=== PATIENT | female | born 1995 | race Caucasian/White ===

== ENCOUNTER 2018-12-13 18:06 | Emergency (ER) | payer BC, OTHER ==
[2018-12-13 18:20] VITALS: BP 117/75; O2SAT 98
--- NOTE | 2018-12-13 18:38 | ERPHSYRPT ---
- History of Present Illness Time Seen by Provider: 12/13/18 18:32 Source: patient Exam Limitations: no limitations Patient Subjective Stated Complaint: Fell in a mole hole on and thinks she twisted her right knee, pain, swelling Triage Nursing Assessment: Pt c/o of right knee pain, knee is swollen and tender to touch, vitals wnl, pulses normal, rates pain 6/10 Physician History: This is a 23-year-old white female previously healthy arrives with complaint of pain in her right knee for 5 days. According to the patient she stepped in a mole hole 5 days ago she fell she twisted her right knee. She is having pain in her right knee worse with walking. Denies other complaints. Past medical history : Sinus problems. Past surgical history tonsils Social history denies tobacco alcohol or illicit drug use Method of Injury: fell, twisted Occurred: days ago (5 days ago) Quality: aching Severity of Pain-Max: moderate Severity of Pain-Current: moderate Lower Extremities Pain: knee: right Modifying Factors: Improves With: movement, other (walking) Associated Symptoms: No unable to bear weight, No dizzy, No fainted, No seizure , No snapping sensation, No popping sensation Allergies/Adverse Reactions: No Known Drug Allergies Allergy (Verified 12/13/18 18:20) Home Medications: Cetirizine HCl [Zyrtec] 10 mg PO DAILY 12/13/18 [History] Fluticasone Propionate [Flonase NASAL] 1 gm NS UD 12/13/18 [History] Montelukast Sodium 10 mg [Singulair 10 MG] 10 mg PO DAILY 12/13/18 [History] Omeprazole 40 mg PO DAILY 12/13/18 [History] - Review of Systems Constitutional: No Fever, No Chills Eyes: No Symptoms Ears, Nose, & Throat: No Symptoms Respiratory: No Cough, No Dyspnea Cardiac: No Symptoms Abdominal/Gastrointestinal: No Abdominal Pain, No Nausea, No Vomiting, No Diarrhea Genitourinary Symptoms: No Dysuria Musculoskeletal: Other (right knee pain and swelling) Skin: No Rash Neurological: No Dizziness, No Focal Weakness, No Sensory Changes Psychological: No Symptoms Endocrine: No Symptoms All Other Systems: Reviewed and Negative - Past Medical History Pertinent Past Medical History: No Other Medical History: sinus issues - Past Surgical History Past Surgical History: Yes - Social History Smoking Status: Never smoker Exposure to second hand smoke: No Drug Use: none Patient Lives Alone: No - Female History Hx Last Menstrual Period: 11/25/2018 Hx Now: No - Nursing Vital Signs Nursing Vital Signs: Initial Vital Signs Temperature 97.9 F 12/13/18 18:10 Pulse Rate 82 12/13/18 18:10 Blood Pressure 117/75 12/13/18 18:10 O2 Sat by Pulse Oximetry 98 12/13/18 18:10 Pain Scale Pain Intensity 6 - Physical Exam General Appearance: mild distress, alert Eyes, Ears, Nose, Throat Exam: moist mucous membranes Neck Exam: non-tender, supple Cardiovascular/Respiratory Exam: chest non-tender, normal breath sounds, regular rate/rhythm, no respiratory distress Gastrointestinal/Abdominal Exam: non-tender, guarding Back Exam: normal inspection, No vertebral tenderness Hips Exam: bilateral: non-tender, normal inspection, normal range of motion, no evidence of injury Legs Exam: bilateral leg: non-tender, normal inspection, normal range of motion , no evidence of injury Knees Exam: right knee: bone tenderness (right knee tender anteriorly with palpation), other (mild edema right anterior knee, right knee stable to anterior drawer posterior drawer MCL stress LCL stress), left knee: non-tender ( she), normal inspection, bilateral knee: normal range of motion Ankle Exam: bilateral ankle: non-tender, normal inspection, normal range of motion, no evidence of injury Foot Exam: bilateral foot: non-tender, normal inspection, normal range of motion , no evidence of injury DTR - Lower Extremities Exam: ankle (R): 2+, ankle (L): 2+ Neuro/Tendon Exam: normal sensation, normal motor functions Mental Status Exam: alert (for), oriented x 3, cooperative Skin Exam: normal color, warm, dry SpO2 Interpretation: normal (98%) SpO2: 98 - Course Nursing assessment & vital signs reviewed: Yes - Radiology Exams Right Knee X-ray Interpretation: Interpreted by me ([facility] stable: negative fracture, negative subluxation) Ordered Tests: Active Orders 24 hr Category Date Time Status KNEE (3 VIEWS) Stat Exams 12/13/18 18:30 Ordered - Progress Progress: improved Progress Note: 12/13/18 18:45 Patient denies chance of 12/13/18 18:54 X-ray right knee negative fracture negative subluxation. Will have the nurses placed a right knee immobilizer. Will place patient on Naprosyn. - Departure Departure Disposition: Home Clinical Impression: Strain of right knee Qualifiers: Encounter type: initial encounter Qualified Code(s): S86.911A - Strain of unspecified muscle(s) and tendon(s) at lower leg level, right leg, initial encounter Right knee pain Qualifiers: Chronicity: acute Qualified Code(s): M25.561 - Pain in right knee Condition: Fair Critical Care Time: No Referrals: ANNETTE PRECIADO [Primary Care Provider] - Instructions: Knee Sprain (DC), Knee Pain (DC) Additional Instructions: Return home. Ice and elevate right knee 24-48 hours. Naprosyn as prescribed. Followup with your family symptoms are worse, no better in 48-72 hours or persist longer than one week. Return for acute distress or for severe symptoms.
[2018-12-13 19:16] VITALS: PULSE 89
--- NOTE | 2018-12-14 08:40 | XRAY ---
Indication: Pain following fall 5 days ago. Comparison: None 3 views of the right knee obtained. No bony, articular, or soft tissue abnormalities.
== END 2018-12-13 19:17 | disposition home or self-care (01) ==
LOC: ED 18:06
DX: S86.911A Strain of unspecified muscle(s) and tendon(s) at lower leg level, right leg, initial encounter (principal); X50.1XXA Overexertion from prolonged static or awkward postures, initial encounter; Y93.01 Activity, walking, marching and hiking; M25.561 Pain in right knee
CPT/HCPCS: 73562; 99284; L1830

== ENCOUNTER 2019-02-12 11:33 | Emergency (ER) | payer BC, OTHER ==
[2019-02-12 11:43] VITALS: BP 125/72; PULSE 84
[2019-02-12 11:51] VITALS: O2SAT 96
[2019-02-12] MEDS ORDERED: BENADRYL 50 MG/ML IM ONE (11:55)
[2019-02-12] MEDS ORDERED: BENADRYL 50 MG/ML ONE (11:58)
--- NOTE | 2019-02-12 11:59 | ERPHSYRPT ---
- History of Present Illness Time Seen by Provider: 02/12/19 11:56 Source: patient Exam Limitations: no limitations Patient Subjective Stated Complaint: was taking zyrtec and stoopoed taking it to get allergy testing and has niow broke out in rash Triage Nursing Assessment: pt alert nad orietnedx3, ambualtes by self, gait is steady, lung sounds clear, no swelling of throat, pupils perrla2, skin warm dry and itnact, patient has pin point rash all over her body arms legs torso and back, states she was in grass yesterday and is not taking zyrtec right now because shes having allergy testing done wednesday Physician History: was taking zyrtec and stoopoed taking it to get allergy testing and has now broke out in rash Timing/Duration: today Severity: moderate Associated Symptoms: rash Allergies/Adverse Reactions: No Known Drug Allergies Allergy (Verified 12/13/18 18:20) Home Medications: Cetirizine HCl [Zyrtec] 10 mg PO DAILY 12/13/18 [History] Fluticasone Propionate [Flonase NASAL] 1 gm NS UD 12/13/18 [History] Montelukast Sodium 10 mg [Singulair 10 MG] 10 mg PO DAILY 12/13/18 [History] Omeprazole 40 mg PO DAILY 12/13/18 [History] Hx Tetanus, Diphtheria Vaccination/Date Given: Yes Hx Influenza Vaccination/Date Given: No Hx Pneumococcal Vaccination/Date Given: No Immunizations Up to Date: Yes - Review of Systems Constitutional: No Symptoms Eyes: No Symptoms Ears, Nose, & Throat: No Symptoms Respiratory: No Symptoms Cardiac: No Symptoms Musculoskeletal: No Symptoms Skin: Rash Neurological: No Symptoms Psychological: No Symptoms - Past Medical History Pertinent Past Medical History: No Other Medical History: sinus issues - Past Surgical History Past Surgical History: No - Social History Smoking Status: Never smoker Exposure to second hand smoke: No Drug Use: none Patient Lives Alone: No - Female History Hx Now: No - Nursing Vital Signs Nursing Vital Signs: Initial Vital Signs Temperature 98.2 F 02/12/19 11:33 Pulse Rate 84 02/12/19 11:33 Respiratory Rate 16 02/12/19 11:33 Blood Pressure 125/72 02/12/19 11:33 O2 Sat by Pulse Oximetry 98 02/12/19 11:33 - Physical Exam General Appearance: no apparent distress, alert Eye Exam: PERRL/EOMI, eyes nml inspection Ears, Nose, Throat Exam: normal ENT inspection, TMs normal, pharynx normal, moist mucous membranes Neck Exam: normal inspection, non-tender, supple, full range of motion Respiratory Exam: normal breath sounds, lungs clear, No respiratory distress Cardiovascular Exam: regular rate/rhythm, normal heart sounds, normal peripheral pulses Gastrointestinal/Abdomen Exam: soft, normal bowel sounds, No tenderness, No mass Back Exam: normal inspection, normal range of motion, No CVA tenderness, No vertebral tenderness Extremity Exam: normal inspection, normal range of motion, pelvis stable Neurologic Exam: alert, oriented x 3, cooperative, normal mood/affect, nml cerebellar function, nml station & gait, sensation nml, No motor deficits Skin Exam: normal color, warm, dry, rash Lymphatic Exam: No adenopathy SpO2: 96 - Course Nursing assessment & vital signs reviewed: Yes Ordered Tests: Medication Summary Generic Name Dose Route Start Last Admin Trade Name Elfego PRN Reason Stop Dose Admin Diphenhydramine HCl 25 mg 02/12/19 11:55 Benadryl 50 Mg/Ml IM 02/12/19 11:56 STAT ONE - Progress Progress: unchanged Counseled pt/family regarding: diagnosis, need for follow-up - Departure Departure Disposition: Home Clinical Impression: Rash due to allergy Condition: Stable Critical Care Time: No Referrals: ANNETTE PRECIADO [Primary Care Provider] - Instructions: Skin Rash (DC) Additional Instructions: RASH 1. Depending on the reason for the rash, the instructions will differ. 2. If an antibiotic has been prescribed, take it as directed until gone. 3. If anti-fungals or shampoos are prescribed, use only as directed and follow specific instructions on package container. 4. Avoid hot showers/baths, as this may increase itching. 5. Calamine lotion or Aveeno Oatmeal baths may help itching. 6. See your family physician if these signs or symptoms persist for more than four days. Discharge/Care Plan ODALYS GALLAGHER JERSEY was seen on 02/12/19 in the Emergency Room. The patient was counseled regarding Diagnosis,Lab results, Imaging studies, need for follow up and when to return to the Emergency Room. Prescriptions given: Discharge Note I have spoken with the patient and/or caregivers. I have explained the patient' s condition, diagnosis and treatment plan based on the information available to me at this time. I have answered the patient's and/or caregiver's questions and addressed any concerns. The patient and/or caregivers have as good understanding of the patient's diagnosis, condition and treatment plan as can be expected at this point. The vital signs have been stable. The patient's condition is stable and appropriate for discharge from the emergency department. The patient will pursue further outpatient evaluation with the primary care physician or other designated or consulting physician as outlined in the discharge instructions. The patient and/or caregivers are agreeable to this plan of care and follow-up instructions have been explained in detail. The patient and/or caregivers have received these instruction. The patient/and or caregivers are aware that any significant change in condition or worsening of symptoms should prompt an immediate return to this or the closest emergency department or call 911.
== END 2019-02-12 12:11 | disposition home or self-care (01) ==
LOC: ED 11:33
DX: T78.40XA Allergy, unspecified, initial encounter (principal); R21 Rash and other nonspecific skin eruption
CPT/HCPCS: 87651; 96372; 99283; 99284; J1200; J2930

== ENCOUNTER 2019-02-12 20:43 | Emergency (ER) | payer BC, OTHER ==
--- NOTE | 2019-02-12 21:15 | ERPHSYRPT ---
- History of Present Illness Time Seen by Provider: 02/12/19 21:03 Source: patient Exam Limitations: no limitations Patient Subjective Stated Complaint: Pt states last night around midnight she started breaking out in a rash. came in to the ER today and was given a Benadryl shot. After going home the rash started getting worse and itching so bad she had to come back in Triage Nursing Assessment: Pt ambulated to dept with steady gait. Alert and oriented x3. Respirations easy and non-labored. Pt has large patches of hives on her right shoulder and down her back, also a large spot under her left arm. Multiple other spots all over the upper half of her body Physician History: 23-year-old white female arrives with complaint of a rash since this morning she states she had stopped Zyrtec for allergy testing. She developed a rash she came into the ER was given a shot of Benadryl she feels like her rashes were she does state she went ahead and took a Zyrtec anyway she states that she is having worsening of the rash she has some correlated rash on her back in erythematous rash on her abdomen she is not short of breath she has no sore throat she has no fevers she denies new contacts. She was given a shot of Benadryl here in the emergency room states she was going to use topical Benadryl. Past medical history includes sinus problems. She states she is going to be worked up for allergies. Past surgical history is negative. Patient states she has had a period about a month ago she denies any chance of . Timing/Duration: today Severity: moderate Modifying Factors: Improves With: other (stopped Zyrtec) Associated Symptoms: rash (diffuse rash), No nausea, No vomiting, No abdominal pain, No shortness of breath, No heartburn, No diaphoresis, No cough, No chills , No chest pain, No fever, No headaches, No loss of appetite, No malaise Allergies/Adverse Reactions: No Known Drug Allergies Allergy (Verified 12/13/18 18:20) Home Medications: Cetirizine HCl [Zyrtec] 10 mg PO DAILY 12/13/18 [History] Fluticasone Propionate [Flonase NASAL] 1 gm NS UD 12/13/18 [History] Omeprazole 40 mg PO DAILY 12/13/18 [History] Hx Tetanus, Diphtheria Vaccination/Date Given: Yes Hx Influenza Vaccination/Date Given: No Hx Pneumococcal Vaccination/Date Given: No - Review of Systems Constitutional: No Fever, No Chills Eyes: No Symptoms Ears, Nose, & Throat: No Symptoms Respiratory: No Cough, No Dyspnea Cardiac: No Chest Pain, No Edema, No Syncope Abdominal/Gastrointestinal: No Abdominal Pain, No Nausea, No Vomiting, No Diarrhea Genitourinary Symptoms: No Dysuria Musculoskeletal: No Back Pain, No Neck Pain Skin: Rash (diffuse rash) Neurological: No Dizziness, No Focal Weakness, No Sensory Changes Psychological: No Symptoms Endocrine: No Symptoms All Other Systems: Reviewed and Negative - Past Medical History Pertinent Past Medical History: No Other Medical History: sinus issues and allergies - Past Surgical History Past Surgical History: Yes - Social History Smoking Status: Never smoker Exposure to second hand smoke: No Drug Use: none Patient Lives Alone: No - Female History Hx Last Menstrual Period: December 2018 Hx Now: No - Nursing Vital Signs Nursing Vital Signs: Initial Vital Signs Temperature 98.1 F 02/12/19 20:50 Pulse Rate 89 02/12/19 20:50 Respiratory Rate 18 02/12/19 20:50 Blood Pressure 122/88 02/12/19 20:50 O2 Sat by Pulse Oximetry 98 02/12/19 20:50 Pain Scale Pain Intensity 0 - Physical Exam General Appearance: no apparent distress, alert Eye Exam: PERRL/EOMI, eyes nml inspection Ears, Nose, Throat Exam: normal ENT inspection, TMs normal, pharynx normal, moist mucous membranes Neck Exam: normal inspection, non-tender, supple, full range of motion Respiratory Exam: normal breath sounds, lungs clear, No respiratory distress Cardiovascular Exam: regular rate/rhythm, normal heart sounds, normal peripheral pulses Gastrointestinal/Abdomen Exam: soft, normal bowel sounds, No tenderness, No mass Back Exam: normal inspection, normal range of motion, No CVA tenderness, No vertebral tenderness Extremity Exam: normal inspection, normal range of motion, pelvis stable Neurologic Exam: alert, oriented x 3, cooperative, normal mood/affect, nml cerebellar function, nml station & gait, sensation nml, No motor deficits Skin Exam: other (raised rash on her back laterally few erythematous areas of rash on her anterior abdomen) Lymphatic Exam: No adenopathy SpO2 Interpretation: normal (99%) SpO2: 99 - Course Nursing assessment & vital signs reviewed: Yes Ordered Tests: Medication Summary Generic Name Dose Route Start Last Admin Trade Name Elfego PRN Reason Stop Dose Admin Methylprednisolone Sodium Succinate 125 mg 02/12/19 21:59 Solu-Medrol 125 Mg IM 02/12/19 22:00 STAT ONE Lab/Rad Data: Laboratory Results 02/12/19 Range/Units 21:18 Group A Strep Antibody NEGATIVE (NEGATIVE) - Progress Progress: improved Progress Note: 02/12/19 21:14 23-year-old white female who has been on Zyrtec in the past secondary to seasonal allergies she apparently was going to have allergy testing and stop the Zantac she's developed a diffuse a rash today which is severe urticaria laterally on her back in a few erythematous areas on her abdomen. She was seen here in the emergency room given an injection of Benadryl. She states that she was going to take topical Benadryl at home however a rash appears to be getting worse. She is not having any shortness of breath she does state that she went ahead and took a Zantac today obviating her allergy testing. Patient denies any sore throat will go ahead and check a strep on this patient consider prednisone and Solu-Medrol. 02/12/19 22:01 Strep is negative. Will give Solu-Medrol 125 mg IM. Will send home on tapering dose of prednisone. Patient to continue Zyrtec. Patient to followup with her family Dr. or brake machine operator. - Departure Departure Disposition: Home Clinical Impression: Rash Condition: Fair Critical Care Time: No Referrals: ANNETTE PRECIADO [Primary Care Provider] - Additional Instructions: Return home. Tapering dose of prednisone as directed. Continue Zyrtec. Followup with your brake machine operator/family physician. Return for acute distress or for severe symptoms. Plenty of fluids.
[2019-02-12] MEDS ORDERED: solu-MEDROL 125 MG IM ONE (21:59)
[2019-02-12] MEDS ORDERED: solu-MEDROL 125 MG ONE (22:18)
[2019-02-12 22:34] VITALS: BP 115/79; PULSE 62; O2SAT 96
== END 2019-02-12 22:35 | disposition home or self-care (01) ==
LOC: ED 20:43
DX: R21 Rash and other nonspecific skin eruption (principal)
CPT/HCPCS: 87651; 96372; 99284; J2930

== ENCOUNTER 2021-10-16 09:25 | Emergency (ER) | payer OTHER ==
[2021-10-16] MEDS ORDERED: Zofran 4 MG/2 ML VIAL IV ONE (09:39)
[2021-10-16] MEDS ORDERED: Sodium Chloride 0.9% 1000 ML 1,000 ML IV STA (09:39)
[2021-10-16] MEDS ORDERED: MORPHINE SULFATE 4 MG INJ IV ONE (09:39)
[2021-10-16] MEDS ORDERED: Sodium Chloride 0.9% 1000 ML 1,000 ML ONE (09:45)
[2021-10-16] MEDS ORDERED: Zofran 4 MG/2 ML VIAL ONE (09:45)
[2021-10-16] MEDS ORDERED: MORPHINE SULFATE 4 MG INJ ONE (09:45)
[2021-10-16 10:02] LABS: ALBUMIN 4.6 g/dL (3.5-5.0); ALKALINE PHOSPHATASE 66 U/L (38-126); ANION GAP 16.2 MEQ/L (5-15); BLOOD UREA NITROGEN 12 mg/dL (7-17); CHLORIDE 103 mmol/L (98-107); Calcium 10.1 mg/dL (8.4-10.2); Carbon Dioxide 22 mmol/L (22-30); Creatinine 1 0.86 mg/dL (0.52-1.04); EST GLOMERULAR FILTRATION RATE > 60.0 ML/MIN; Glucose 122 mg/dL (74-106); LIPASE 135 U/L (23-300); Potassium 3.7 mmol/L (3.5-5.1); SGOT/AST 22 U/L (14-36); SGPT/ALT 13 U/L (0-35); SODIUM 137 mmol/L (137-145)
--- NOTE | 2021-10-16 10:03 | ERPHSYRPT ---
- History of Present Illness Time Seen by Provider: 10/16/21 09:27 Historian: patient Exam Limitations: no limitations Patient Subjective Stated Complaint: PT HERE FOR LEFT LOWER ABD PAIN SINCE THIS MORNING, WITH SOME VOMITING, SHE THINKS SHE IS CONSTIPATED. LAST BM YESTERDAY Triage Nursing Assessment: PT ARRIVED PER AMBULANCE, ALERT, RESTLESS, RESP EASY, SKIN W/D/P. Physician History: 26 years old female presented in the ER with chief complaint of left flank pain onset this morning with associated 3 episodes of nonprojectile, nonbilious vomiting without hematemesis. Denies any urinary complaints no fever chills or sick contact reported. No history of kidney stones. Timing/Duration: today, sudden, worse Activities at Onset: rest Quality: sharpness Abdominal Pain Onset Location: LLQ, flank Severity of Pain-Max: severe Severity of Pain-Current: severe Modifying Factors: Worsens With: movement, palpation, vomiting, position Associated Symptoms: nausea, vomiting Previous symptoms: no prior history Allergies/Adverse Reactions: No Known Drug Allergies Allergy (Verified 10/16/21 09:33) Home Medications: Cetirizine HCl [Zyrtec] 10 mg PO DAILY 12/13/18 [History] Fluticasone Propionate [Flonase NASAL] 1 gm NS UD 12/13/18 [History] Omeprazole 40 mg PO DAILY 12/13/18 [History] Triamcinolone 0.1% Cream [Kenalog 0.1% Cream 15 gm] 1 ea DAILY 10/16/21 [History] Hx Tetanus, Diphtheria Vaccination/Date Given: No Hx Influenza Vaccination/Date Given: No Hx Pneumococcal Vaccination/Date Given: No Immunizations Up to Date: Yes Travel Risk - International Travel Have you traveled outside of the country in past 3 weeks: No - Coronavirus Screening Are you exhibiting any of the following symptoms?: No Close contact with a COVID-19 positive Pt in past 14-21 Days: No - Vaccine Status Have you recieved a Covid-19 vaccination: No - Review of Systems Constitutional: No Symptoms Eyes: No Symptoms Ears, Nose, & Throat: No Symptoms Respiratory: No Symptoms Cardiac: No Symptoms Abdominal/Gastrointestinal: Abdominal Pain, Nausea, Vomiting Genitourinary Symptoms: No Symptoms Musculoskeletal: No Symptoms Skin: No Symptoms Neurological: No Symptoms Psychological: No Symptoms Endocrine: No Symptoms Hematologic/Lymphatic: No Symptoms Immunological/Allergic: No Symptoms - Past Medical History Pertinent Past Medical History: No Neurological History: No Pertinent History Cardiac History: No Pertinent History Respiratory History: Asthma, Other Endocrine Medical History: Hypothyroidism Other Medical History: STATES HAD COVID LAST YEAR. IS NOT VACCINATED. PMHX ALSO INCLUDES GERD - Past Surgical History Past Surgical History: Yes - Social History Smoking Status: Never smoker Exposure to second hand smoke: No Drug Use: none Patient Lives Alone: No - Female History Hx Last Menstrual Period: 2 WEEKS AGO Hx Now: (unkn) - Nursing Vital Signs Nursing Vital Signs: Initial Vital Signs Pulse Rate 62 10/16/21 09:26 Respiratory Rate 18 10/16/21 09:26 Blood Pressure 127/66 10/16/21 09:26 O2 Sat by Pulse Oximetry 100 10/16/21 09:26 Pain Scale Pain Intensity 1 - Physical Exam General Appearance: alert Eye Exam: PERRL/EOMI Ears, Nose, Throat Exam: normal ENT inspection, pharynx normal Neck Exam: normal inspection, full range of motion Respiratory Exam: normal breath sounds, lungs clear Cardiovascular Exam: regular rate/rhythm, normal heart sounds Gastrointestinal/Abdomen Exam: soft, normal bowel sounds, tenderness (Left flank/left lower quadrant) Back Exam: normal inspection, normal range of motion, CVA tenderness Extremity Exam: normal inspection, normal range of motion Neurologic Exam: alert, oriented x 3, cooperative Skin Exam: normal color SpO2 Interpretation: normal SpO2: 100 O2 Delivery: Room Air Ordered Tests: Active Orders 24 hr Category Date Time Status IV Insertion STAT Care 10/16/21 09:39 Completed NPO (ED) STAT Care 10/16/21 09:39 Completed ABDOMEN AND PELVIS W/0 CONTRAS [CT] Stat Exams 10/16/21 09:39 Completed CBC W DIFF Stat Lab 10/16/21 09:35 Completed CMP Stat Lab 10/16/21 09:35 Completed CULTURE,URINE Stat Lab 10/16/21 11:20 Received HCG QUALITATIVE,SERUM Stat Lab 10/16/21 09:35 Completed LIPASE Stat Lab 10/16/21 09:35 Completed UA W/RFX UR CULTURE Stat Lab 10/16/21 11:20 Completed Medication Summary Discontinued Medications Generic Name Dose Route Start Last Admin Trade Name Freq PRN Reason Stop Dose Admin Sodium Chloride 1,000 mls @ 999 mls/hr 10/16/21 09:39 10/16/21 09:48 Sodium Chloride 0.9% 1000 Ml IV 10/16/21 10:39 999 mls/hr .Q1H1M STA Administration Sodium Chloride Confirm 10/16/21 09:45 Sodium Chloride 0.9% 1000 Ml Administered 10/16/21 09:46 Dose 1,000 mls @ ud .ROUTE .STK-MED ONE Ketorolac Tromethamine 30 mg 10/16/21 10:22 10/16/21 10:25 Ketorolac Tromethamine 30 Mg/Ml Inj IV 10/16/21 10:23 30 mg STAT ONE Administration Ketorolac Tromethamine Confirm 10/16/21 10:23 Ketorolac Tromethamine 30 Mg/Ml Inj Administered 10/16/21 10:24 Dose 30 mg .ROUTE .STK-MED ONE Morphine Sulfate 4 mg 10/16/21 09:39 10/16/21 09:48 Morphine Sulfate 4 Mg/Ml Injection IV 10/16/21 09:40 4 mg STAT ONE Administration Morphine Sulfate Confirm 10/16/21 09:45 Morphine Sulfate 4 Mg/Ml Injection Administered 10/16/21 09:46 Dose 4 mg .ROUTE .STK-MED ONE Ondansetron HCl 4 mg 10/16/21 09:39 10/16/21 09:47 Ondansetron Hcl 4 Mg/2 Ml Vial IV 10/16/21 09:40 4 mg STAT ONE Administration Ondansetron HCl Confirm 10/16/21 09:45 Ondansetron Hcl 4 Mg/2 Ml Vial Administered 10/16/21 09:46 Dose 4 mg .ROUTE .STK-MED ONE Lab/Rad Data: Laboratory Result Diagrams 10/16/21 09:35 10/16/21 09:35 Laboratory Results 10/16/21 10/16/21 10/16/21 Range/Units 11:20 09:35 09:35 WBC (4.0-10.5) K/mm3 RBC (4.1-5.4) M/mm3 Hgb (12.0-16.0) gm/dl Hct (35-47) % MCV (78-100) fl MCH (26-32) pg MCHC (32-36) g/dl RDW (11.5-14.0) % Plt Count (150-450) K/mm3 MPV (7.5-11.0) fl Gran % (36.0-66.0) % Eos # (Auto) (0-0.5) Absolute Lymphs (auto) (1.0-4.6) Absolute Monos (auto) (0.0-1.3) Lymphocytes % (24.0-44.0) % Monocytes % (0.0-12.0) % Eosinophils % (0.00-5.0) % Basophils % (0.0-0.4) % Absolute Granulocytes (1.4-6.9) Basophils # (0-0.4) Sodium 137 (137-145) mmol/L Potassium 3.7 (3.5-5.1) mmol/L Chloride 103 (98-107) mmol/L Carbon Dioxide 22 (22-30) mmol/L Anion Gap 16.2 H (5-15) MEQ/L BUN 12 (7-17) mg/dL Creatinine 0.86 (0.52-1.04) mg/dL Estimated GFR > 60.0 ML/MIN Glucose 122 H (74-106) mg/dL Calcium 10.1 (8.4-10.2) mg/dL Total Bilirubin 0.90 (0.2-1.3) mg/dL AST 22 (14-36) U/L ALT 13 (0-35) U/L Alkaline Phosphatase 66 (38-126) U/L Serum Total Protein 7.0 (6.3-8.2) g/dL Albumin 4.6 (3.5-5.0) g/dL Lipase 135 (23-300) U/L Serum , Qual NEGATIVE (Negative) Urine Color YELLOW (YELLOW) Urine Appearance CLOUDY (CLEAR) Urine pH 8.0 (5-6) Ur Specific [place] 1.020 (1.005-1.025) Urine Protein NEGATIVE (Negative) Urine Ketones LARGE-80 (NEGATIVE) Urine Blood MODERATE (0-5) Willy/ul Urine Nitrite NEGATIVE (NEGATIVE) Urine Bilirubin NEGATIVE (NEGATIVE) Urine Urobilinogen 0.2 (0-1) mg/dL Ur Leukocyte Esterase NEGATIVE (NEGATIVE) Urine WBC (Auto) 3-5 (0-5) /HPF Urine RBC (Auto) 16-25 (0-2) /HPF U Epithel Cells (Auto) FEW (FEW) /HPF Urine Bacteria (Auto) NONE (NEGATIVE) /HPF Urine Mucus (Auto) SLIGHT (NEGATIVE) /HPF Urine Culture Reflexed YES (NO) Urine Glucose NEGATIVE (NEGATIVE) mg/dL 10/16/21 Range/Units 09:35 WBC 13.5 H (4.0-10.5) K/mm3 RBC 4.70 (4.1-5.4) M/mm3 Hgb 14.7 (12.0-16.0) gm/dl Hct 42.5 (35-47) % MCV 90.4 (78-100) fl MCH 31.3 (26-32) pg MCHC 34.6 (32-36) g/dl RDW 12.9 (11.5-14.0) % Plt Count 308 (150-450) K/mm3 MPV 11.2 H (7.5-11.0) fl Gran % 74.4 H (36.0-66.0) % Eos # (Auto) 0.07 (0-0.5) Absolute Lymphs (auto) 2.38 (1.0-4.6) Absolute Monos (auto) 0.99 (0.0-1.3) Lymphocytes % 17.6 L (24.0-44.0) % Monocytes % 7.3 (0.0-12.0) % Eosinophils % 0.5 (0.00-5.0) % Basophils % 0.2 (0.0-0.4) % Absolute Granulocytes 10.02 H (1.4-6.9) Basophils # 0.03 (0-0.4) Sodium (137-145) mmol/L Potassium (3.5-5.1) mmol/L Chloride (98-107) mmol/L Carbon Dioxide (22-30) mmol/L Anion Gap (5-15) MEQ/L BUN (7-17) mg/dL Creatinine (0.52-1.04) mg/dL Estimated GFR ML/MIN Glucose (74-106) mg/dL Calcium (8.4-10.2) mg/dL Total Bilirubin (0.2-1.3) mg/dL AST (14-36) U/L ALT (0-35) U/L Alkaline Phosphatase (38-126) U/L Serum Total Protein (6.3-8.2) g/dL Albumin (3.5-5.0) g/dL Lipase (23-300) U/L Serum , Qual (Negative) Urine Color (YELLOW) Urine Appearance (CLEAR) Urine pH (5-6) Ur Specific [place] (1.005-1.025) Urine Protein (Negative) Urine Ketones (NEGATIVE) Urine Blood (0-5) Willy/ul Urine Nitrite (NEGATIVE) Urine Bilirubin (NEGATIVE) Urine Urobilinogen (0-1) mg/dL Ur Leukocyte Esterase (NEGATIVE) Urine WBC (Auto) (0-5) /HPF Urine RBC (Auto) (0-2) /HPF U Epithel Cells (Auto) (FEW) /HPF Urine Bacteria (Auto) (NEGATIVE) /HPF Urine Mucus (Auto) (NEGATIVE) /HPF Urine Culture Reflexed (NO) Urine Glucose (NEGATIVE) mg/dL - Progress Progress: improved Progress Note: 10/16/21 12:42 She is given symptomatic treatment for pain and fluids, on reevaluation her pain is resolved. Normal white count, grossly unremarkable chemistries. CT showed mild hydronephrosis and perinephric edema, finding consistent with recently passed stone. I believe this is secondary to stone with questionable pyelonephritis. Will give a short course of antibiotics and outpatient urology follow-up recommended. Counseled pt/family regarding: lab results, diagnosis, rad results - Departure Departure Disposition: Home Clinical Impression: Ureterolithiasis Condition: Stable Critical Care Time: No Referrals: CAROLA BATES DO [Primary Care Provider] - Follow up/PCP as directed (1-2 days for re evaluation ) WAYNE DE LA CRUZ [COURTESY STAFF] - Follow up/PCP as directed (Call for appointment for reevaluation) Instructions: Kidney Stones (DC), Acute Abdomen (Belly Pain), Adult (DC) Additional Instructions: Drink plenty of fluids. Take Tylenol/ibuprofen as needed. Follow-up with primary care/urology for reevaluation. Return to ER for worsening pain, or if develop nausea vomiting, fever chills etc. Prescriptions: Ibuprofen 600 mg PO Q6HPRN PRN 10 Days #20 tablet PRN Reason: Pain Ciprofloxacin [Cipro 500 MG] 500 mg PO BID #14 tablet
[2021-10-16] MEDS ORDERED: TORAdol 30 mg Injection IV ONE (10:22)
[2021-10-16] MEDS ORDERED: TORAdol 30 mg Injection ONE (10:23)
[2021-10-16 10:30] LABS: Absolute Neutrophil Ct (ANC) 10.02 (1.4-6.9); Basophil (Absolute #) 0.03 (0-0.4); Eosinophil % 0.5 % (0.00-5.0); Eosinophil (Absolute #) 0.07 (0-0.5); Hematocrit 42.5 % (35-47); Hemoglobin 14.7 gm/dl (12.0-16.0); Lymphocyte (Absolute #) 2.38 (1.0-4.6); Lymphocytes % 17.6 % (24.0-44.0); Mean Cell Volume 90.4 fl (78-100); Mean Corpuscular Hemoglobin 31.3 pg (26-32); Mean Corpuscular Hgb Concent. 34.6 g/dl (32-36); Mean Platelet Volume 11.2 fl (7.5-11.0); Monocyte (Absolute #) 0.99 (0.0-1.3); Monocytes % 7.3 % (0.0-12.0); Neutrophil % 74.4 % (36.0-66.0); Platelet Count 308 K/mm3 (150-450); Red Cell Distribution Width 12.9 % (11.5-14.0); White Blood Count 13.5 K/mm3 (4.0-10.5)
--- NOTE | 2021-10-16 10:50 | XRAY ---
Indication: Left flank pain. Multiple contiguous axial images obtained through the abdomen and pelvis without contrast. Comparison: None Lung bases clear. Heart is not enlarged. Small hiatal hernia. Noncontrasted stomach and bowel loops appear nonobstructed. Appendix demonstrates tiny appendicolith without appendicitis. 1.7 cm left ovary cyst. Left kidney appears edematous with mild perinephric stranding favoring underlying inflammatory/infectious process. Also mild left-sided hydronephrosis without distal calculus. No free fluid/air. Remaining liver, gallbladder, pancreas, spleen, adrenal glands, kidneys, ureters, bladder, uterus, and aorta are unremarkable for noncontrast exam. Osseous structures intact with minimal degenerative changes throughout the thoracolumbar spine. Impression: 1. Left renal edema with perinephric stranding. Rule out nephritis. Also mild hydronephrosis may suggest recent passage of calculus. 2. Small hiatal hernia and tiny appendicolith.
[2021-10-16 11:21] VITALS: BP 111/64
[2021-10-16 11:44] LABS: Epithelial Cells FEW /HPF (FEW); Mucus SLIGHT /HPF (NEGATIVE)
[2021-10-16 12:20] LABS: Appearance CLOUDY (CLEAR)
[2021-10-16 12:21] LABS: Bilirubin NEGATIVE (NEGATIVE); Blood MODERATE Ery/ul (0-5); Glucose NEGATIVE (NEGATIVE); Ketones LARGE-80 (NEGATIVE); Leukocyte Esterase NEGATIVE (NEGATIVE); Nitrite NEGATIVE (NEGATIVE); Protein,Urine Dip NEGATIVE (Negative); Urobilinogen 0.2 mg/dL (0-1)
[2021-10-16 12:22] LABS: ADD URINE CULTURE? YES (NO)
[2021-10-16 13:07] VITALS: PULSE 72
[2021-10-16 21:09] VITALS: O2SAT 100
== END 2021-10-16 13:07 | disposition home or self-care (01) ==
LOC: ED 09:25
DX: N20.1 Calculus of ureter (principal); R10.32 Left lower quadrant pain; R11.2 Nausea with vomiting, unspecified; K21.9 Gastro-esophageal reflux disease without esophagitis; Z79.899 Other long term (current) drug therapy
CPT/HCPCS: 36000; 36415; 74176; 80053; 81001; 81025; 83690; 85025; 87086; 96374; 96375; 99284; J1885; J2270; J2405

== ENCOUNTER 2022-02-02 17:10 | Emergency (ER) | payer OTHER ==
--- NOTE | 2022-02-02 17:33 | ERPHSYRPT ---
- History of Present Illness Source: patient Exam Limitations: no limitations Patient Subjective Stated Complaint: pt here for earache to bothe ears, runny nose, cough for 3-4 days now was seen sat at clinic Triage Nursing Assessment: pt alert, walked in, resp easy, skin w/d/p, face mask in place, has dry cough, runny nose Physician History: 26 yo wf w cough/coryza/B otalgia/Mild ARTHUR/Subjective fever x 7 days. Pt denies N/V/D/dysurian/hematuria. Pt seen in [facility] 2 days ago w neg CV19 test. Timing/Duration: days (7 days) ENT Location: ear (R), ear (L), throat Prearrival Treatment: no prearrival treatment Modifying Factors: Improves With: coughing Associated Symptoms: denies symptoms, ear pain (R), ear pain (L), cough, fever, chills, nasal congestion/drainage Allergies/Adverse Reactions: No Known Drug Allergies Allergy (Verified 02/02/22 17:19) Home Medications: Cetirizine HCl [Zyrtec] 10 mg PO DAILY 12/13/18 [History] Fluticasone Propionate [Flonase NASAL] 1 gm NS UD 12/13/18 [History] Omeprazole 40 mg PO DAILY 12/13/18 [History] Hx Tetanus, Diphtheria Vaccination/Date Given: No Hx Influenza Vaccination/Date Given: No Hx Pneumococcal Vaccination/Date Given: No Immunizations Up to Date: Yes Travel Risk - International Travel Have you traveled outside of the country in past 3 weeks: No - Coronavirus Screening Are you exhibiting any of the following symptoms?: Yes Symptoms: Cough: New Onset Close contact with a COVID-19 positive Pt in past 14-21 Days: Yes - Vaccine Status Have you recieved a Covid-19 vaccination: No - Review of Systems Constitutional: No Symptoms, Fever Eyes: No Symptoms Ears, Nose, & Throat: No Symptoms, Ear Pain, Nose Congestion, Nose Discharge Respiratory: No Symptoms, Cough Cardiac: No Symptoms Abdominal/Gastrointestinal: No Symptoms Genitourinary Symptoms: No Symptoms Musculoskeletal: No Symptoms, Myalgias Skin: No Symptoms Neurological: No Symptoms Psychological: No Symptoms Endocrine: No Symptoms Hematologic/Lymphatic: No Symptoms Immunological/Allergic: Pollen Allergy - Past Medical History Pertinent Past Medical History: No Neurological History: No Pertinent History Cardiac History: No Pertinent History Respiratory History: Asthma, Other Endocrine Medical History: Hypothyroidism Other Medical History: STATES HAD COVID LAST YEAR. IS NOT VACCINATED. PMHX ALSO INCLUDES GERD - Past Surgical History Past Surgical History: Yes - Social History Smoking Status: Never smoker Exposure to second hand smoke: No Drug Use: none Patient Lives Alone: No Significant Family History: no pertinent family hx - Female History Hx Last Menstrual Period: 2 weeks ago Hx Now: No - Nursing Vital Signs Nursing Vital Signs: Initial Vital Signs Temperature 97.4 F 02/02/22 17:14 Pulse Rate 78 02/02/22 17:14 Respiratory Rate 18 02/02/22 17:14 Blood Pressure 132/87 02/02/22 17:14 O2 Sat by Pulse Oximetry 98 02/02/22 17:14 Pain Scale Pain Intensity 7 WNL - Physical Exam General Appearance: no apparent distress Eye Exam: bilateral eye: normal inspection, PERRL, EOMI Ear Exam: bilateral ear: auricle normal, canal normal, TM normal Nasal Exam: normal inspection Throat Exam: normal, pharynx normal Neck Exam: normal inspection, non-tender, supple, full range of motion, No lymphadenopathy (L), No thyromegaly, No Brudzinski's sign, No carotid bruit, No Kernig's sign, No meningismus Cardiovascular/Respiratory Exam: normal breath sounds, regular rate/rhythm, heart sounds normal, no respiratory distress Abdominal Exam: non-tender, soft, no organomegaly Neurologic Exam: alert, oriented x 3, cooperative, 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, normal mood/affect, nml cerebellar function, nml station & gait, sensation nml Skin Exam: normal color, warm, dry, No rash SpO2 Interpretation: normal SpO2: 98 O2 Delivery: Room Air - Course Nursing assessment & vital signs reviewed: Yes Lab/Rad Data: Laboratory Results 02/02/22 Range/Units 17:50 Influenza Type A Ag NEGATIVE (NEGATIVE) Influenza Type B Ag NEGATIVE (NEGATIVE) RSV (PCR) NEGATIVE (Negative) SARS-CoV-2 (PCR) NEGATIVE (NEGATIVE) - Progress Counseled pt/family regarding: lab results, diagnosis, need for follow-up - Departure Departure Disposition: Home Clinical Impression: Viral URI with cough Condition: Stable Critical Care Time: No Referrals: CAROLA BATES DO [Primary Care Provider] - Follow up/PCP as directed Instructions: Viral Upper Respiratory Infection, Adult (DC) Additional Instructions: Follow up with your family MD Return to ER for worsening cough or temperature greater than 100.5
[2022-02-02 18:36] LABS: INFLUENZA A NEGATIVE (NEGATIVE); INFLUENZA B NEGATIVE (NEGATIVE); RESPIRATORY SYNCTIAL VIRUS NEGATIVE (Negative); SARS-CoV-2 Xpert Express NEGATIVE (NEGATIVE)
[2022-02-02 18:45] VITALS: BP 117/71; PULSE 85
[2022-02-02 19:52] VITALS: O2SAT 98
== END 2022-02-02 18:49 | disposition home or self-care (01) ==
LOC: ED 17:10
DX: J06.9 Acute upper respiratory infection, unspecified (principal); R05.9 Cough, unspecified; R09.81 Nasal congestion; H92.03 Otalgia, bilateral; R51.9 Headache, unspecified; R50.9 Fever, unspecified; Z86.16 Personal history of COVID-19; Z28.310 Unvaccinated for COVID-19
CPT/HCPCS: 0241U; 99282

== ENCOUNTER 2022-05-03 12:31 | Emergency (ER) | payer OTHER ==
[2022-05-03] MEDS ORDERED: Zofran 4 MG/2 ML VIAL IV ONE (13:18)
[2022-05-03] MEDS ORDERED: PROTONIX 40 MG IV IV ONE ×2 (13:18→13:21)
[2022-05-03] MEDS ORDERED: Zofran 4 MG/2 ML VIAL ONE (13:21)
--- NOTE | 2022-05-03 13:36 | ERPHSYRPT ---
- History of Present Illness Time Seen by Provider: 05/03/22 13:29 Historian: patient Exam Limitations: no limitations Patient Subjective Stated Complaint: pt co nausea, off and on comstipation and then loose stools, was seen at clinic and given levsin, no fever Triage Nursing Assessment: pt alert, walked in resp easy, face mask in place, skin w/d/p. no edema noted, abd soft tender all over Physician History: Patient is 26-year-old female without any significant past medical history came to the emergency room with 2 weeks history of nausea abdominal cramps followed by diarrhea and then constipation. Patient has the symptoms for last 2 weeks and she was seen in [facility] couple days ago and at that time she was given dicyclomine which did help her. Because she was feeling constipated so she took some laxative and which did give her diarrhea. She has abdominal crampy pain associated with diarrhea. She also feels nauseated. Patient states that she has this type of symptoms off and on but usually only last for 1 to 2 days. She denies any other symptoms include blood in the stool blood in the urine abdominal distention vomiting chest pain headache. Patient is a daycare worker. Patient denies any stressful situation at work or at home recently. Patient also denies any menstrual problems. Timing/Duration: week(s) (two) Activities at Onset: none Quality: cramping Abdominal Pain Onset Location: generalized abdomen Pain Radiation: no radiation Severity of Pain-Max: moderate Severity of Pain-Current: moderate Modifying Factors: Improves With: defecating Associated Symptoms: nausea Previous symptoms: same symptoms as today Allergies/Adverse Reactions: No Known Drug Allergies Allergy (Verified 05/03/22 12:34) Home Medications: Cetirizine HCl [Zyrtec] 10 mg PO DAILY 12/13/18 [History] Fluticasone Propionate [Flonase NASAL] 1 gm NS UD 12/13/18 [History] Omeprazole 40 mg PO DAILY 12/13/18 [History] Dicyclomine HCl 1 ea DAILY 05/03/22 [History] Hx Tetanus, Diphtheria Vaccination/Date Given: No Hx Influenza Vaccination/Date Given: No Hx Pneumococcal Vaccination/Date Given: No Immunizations Up to Date: Yes Travel Risk - International Travel Have you traveled outside of the country in past 3 weeks: No - Coronavirus Screening Are you exhibiting any of the following symptoms?: No Close contact with a COVID-19 positive Pt in past 14-21 Days: No - Vaccine Status Have you recieved a Covid-19 vaccination: No - Review of Systems Constitutional: No Fever, No Chills Eyes: No Symptoms Ears, Nose, & Throat: No Symptoms Respiratory: No Cough, No Dyspnea Cardiac: No Chest Pain, No Edema, No Syncope Abdominal/Gastrointestinal: Abdominal Pain, Nausea, No Vomiting, No Diarrhea Genitourinary Symptoms: No Dysuria Musculoskeletal: No Back Pain, No Neck Pain Skin: No Rash Neurological: No Dizziness, No Focal Weakness, No Sensory Changes Psychological: No Symptoms Endocrine: No Symptoms All Other Systems: Reviewed and Negative - Past Medical History Pertinent Past Medical History: No Neurological History: No Pertinent History Cardiac History: No Pertinent History Respiratory History: Asthma, Other Endocrine Medical History: Hypothyroidism GI Medical History: GERD Other Medical History: STATES HAD COVID LAST YEAR. IS NOT VACCINATED. PMHX ALSO INCLUDES GERD - Past Surgical History Past Surgical History: Yes - Social History Smoking Status: Never smoker Exposure to second hand smoke: No Drug Use: none Patient Lives Alone: No Significant Family History: no pertinent family hx - Female History Hx Last Menstrual Period: 3 weeks ago Hx Now: No - Nursing Vital Signs Nursing Vital Signs: Initial Vital Signs Temperature 97.0 F 05/03/22 12:36 Pulse Rate 71 05/03/22 12:36 Respiratory Rate 18 05/03/22 12:36 Blood Pressure 122/70 05/03/22 12:36 O2 Sat by Pulse Oximetry 99 05/03/22 12:36 Pain Scale Pain Intensity 7 - Physical Exam General Appearance: no apparent distress, alert Eye Exam: PERRL/EOMI, eyes nml inspection Ears, Nose, Throat Exam: normal ENT inspection, pharynx normal, moist mucous mem branes Neck Exam: normal inspection, non-tender, supple, full range of motion Respiratory Exam: normal breath sounds, lungs clear, No respiratory distress Cardiovascular Exam: regular rate/rhythm, normal heart sounds Gastrointestinal/Abdomen Exam: soft, No tenderness, No mass Back Exam: normal inspection, normal range of motion, No CVA tenderness, No vertebral tenderness Extremity Exam: normal inspection, normal range of motion, pelvis stable Neurologic Exam: alert, oriented x 3, cooperative, normal mood/affect, nml cerebellar function, sensation nml, No motor deficits Skin Exam: normal color, warm, dry SpO2: 99 - Course Nursing assessment & vital signs reviewed: Yes Ordered Tests: Active Orders 24 hr Category Date Time Status IV Insertion STAT Care 05/03/22 13:19 Active Medication Summary Discontinued Medications Generic Name Dose Route Start Last Admin Trade Name Elfego PRN Reason Stop Dose Admin Ondansetron HCl 4 mg 05/03/22 13:18 05/03/22 13:23 Ondansetron Hcl 4 Mg/2 Ml Vial IV 05/03/22 13:19 4 mg STAT ONE Administration Ondansetron HCl Confirm 05/03/22 13:21 Ondansetron Hcl 4 Mg/2 Ml Vial Administered 05/03/22 13:22 Dose 4 mg .ROUTE .STK-MED ONE Pantoprazole Sodium 40 mg 05/03/22 13:18 05/03/22 13:23 Pantoprazole 40 Mg Vial IV 05/03/22 13:19 40 mg STAT ONE Administration Pantoprazole Sodium Confirm 05/03/22 13:21 Pantoprazole 40 Mg Vial Administered 05/03/22 13:22 Dose 40 mg IV .STK-MED ONE - Progress Progress: unchanged Counseled pt/family regarding: diagnosis, need for follow-up - Departure Departure Disposition: Home Clinical Impression: Irritable bowel syndrome Qualifiers: Irritable bowel syndrome type: with both diarrhea and constipation Qualified Code(s): K58.2 - Mixed irritable bowel syndrome Condition: Stable Critical Care Time: No Referrals: CAROLA BATES DO [Primary Care Provider] - Follow up/PCP as directed Instructions: Irritable Bowel Syndrome (DC), Irritable Bowel Syndrome, IBS Diet Additional Instructions: Discharge/Care Plan ODALYS GALLAGHER JERSEY was seen on 05/03/22 in the Emergency Room. The patient was counseled regarding Diagnosis,Lab results, Imaging studies, need for follow up and when to return to the Emergency Room. Prescriptions given: Discharge Note I have spoken with the patient and/or caregivers. I have explained the patient's condition, diagnosis and treatment plan based on the information available to me at this time. I have answered the patient's and/or caregiver's questions and addressed any concerns. The patient and/or caregivers have as good understanding of the patient's diagnosis, condition and treatment plan as can be expected at this point. The vital signs have been stable. The patient's condition is stable and appropriate for discharge from the emergency department. The patient will pursue further outpatient evaluation with the primary care physician or other designated or consulting physician as outlined in the tiffani jules instructions. The patient and/or caregivers are agreeable to this plan of care and follow-up instructions have been explained in detail. The patient and/or caregivers have received these instruction. The patient/and or caregivers are aware that any significant change in condition or worsening of symptoms should prompt an immediate return to this or the closest emergency department or call 911. ELLIOTTODALYS PUTNAM was seen on 05/03/22 n the Emergency Room. At that time you were treated for an emergent condition, during your visit Laboratory, Radiology and/or other procedures may have been ordered. It is very important that you follow-up with your Primary Care Physician CAROLA BATES DO within the next 24-48 hours to review your Emergency Room visit and the final results of testing that was ordered. Some test results such as Urine Cultures, Blood Cultures, and other cultures if ordered will not be finalized for 24-48 hours. If you do not have a Primary Care Provider please call the medical records department at [phone] ext [phone] to obtain a copy of your results or you may sign into our patient portal to obtain these results by visiting us @ [email or web address] and completing the following steps: 1. Click on the Patient Portal link 2. Click the Patient Self Enrollment Link to complete the enrollment form and entering your 3. Once the enrollment form is completed you will receive an email with a temporary ID and password at the email address you provided. 4. Next choose a user name and password. Your user name must be at least 4 characters long and your password must be at least 4 characters long. 5. Choose a security question from the list and provide your answer to the question. If you already have signed into the Health Portal you may access your Health Care Information 08/02 by the following steps: 1. Login to our website @ [email or web address] 2. Enter your original user name and password. FAQS [facility] Health Portal is an online tool that contains your Lab Results, Radiology Reports, Visit History, Discharge Instructions and Health Summary Lab and Radiology Results will not be available for 72 hours on the portal. The Portal is a secure site, passwords are encryted and URLs are re-written so they cannot be copied and pasted. You and authorized family members are the only ones who can access your Portal. Also there is a timeout feature that protects your information if you leave the Portal page open. If you have technical difficulty please use the Contact Us link on the page this will allow you to submit any questions you have regarding the Portal or you may contact the Medical Record Department at [phone]. Prescriptions: Dicyclomine HCl 20 mg [Bentyl 20 mg] 20 mg PO QID #30 tablet Ondansetron ODT 4 MG [Zofran Odt 4 mg] 4 mg PO Q6H PRN PRN #15 tablet PRN Reason: Nausea
[2022-05-03 13:54] VITALS: BP 105/73; PULSE 70; O2SAT 97
== END 2022-05-03 13:54 | disposition home or self-care (01) ==
LOC: ED 12:31
DX: K58.2 Mixed irritable bowel syndrome (principal); R10.9 Unspecified abdominal pain; Z79.899 Other long term (current) drug therapy; Z28.310 Unvaccinated for COVID-19
CPT/HCPCS: 36000; 96374; 96375; 99283; J2405

== ENCOUNTER 2023-07-23 22:57 | Emergency (ER) | payer OTHER ==
[2023-07-23 23:40] VITALS: TEMP 98.1
[2023-07-23] MEDS ORDERED: ZOFRAN ODT 4 MG PO ONE (23:47)
--- NOTE | 2023-07-23 23:50 | ERPHSYRPT ---
- History of Present Illness Time Seen by Provider: 07/23/23 23:38 Source: patient Exam Limitations: no limitations Patient Subjective Stated Complaint: pt states that she felt fine yesterday and this morning. at approx 1500 she started having nausea and since that time has vomited yellow/green liquid approx 5times. reports her LBM was at approx 2130 and it was soft and brown. denies blood in vomit or stool. denies pain. Triage Nursing Assessment: pt ambulated to room 8 independently with slow steady gait after standing on scales for weight acquisition and to bathroom to provide urine sample. pt is alert and oriented times three, able to speak in complete sentences, able to move all extremities, and with resp even and unlabored. pt denies pain, sob, difficulty breathing, lightheadedness, dizziness, or other ill feelings besides nausea. abd soft, obese, nontender to touch, and with positive bowel sounds in all quadrants. Physician History: For the past 8 1/2 hours pt has had nausea, vomiting without blood and diarrhea; denies fever, abdominal pain, chest pain, shortness of air. Allergies/Adverse Reactions: No Known Drug Allergies Allergy (Verified 07/23/23 23:22) Home Medications: Cetirizine HCl [Zyrtec] 10 mg PO DAILY 12/13/18 [History] Fluticasone Propionate [Flonase NASAL] 1 gm NS UD 12/13/18 [History] Omeprazole 40 mg PO DAILY 12/13/18 [History] hydrOXYzine HCL [Hydroxyzine HCl] 1 - 2 tab PO HS PRN PRN 07/23/23 [History] Hx Tetanus, Diphtheria Vaccination/Date Given: Yes Hx Influenza Vaccination/Date Given: Yes Hx Pneumococcal Vaccination/Date Given: No Immunizations Up to Date: Yes Travel Risk - International Travel Have you traveled outside of the country in past 3 weeks: No - Coronavirus Screening Symptoms: Vomiting/Diarrhea Close contact with a COVID-19 positive Pt in past 14-21 Days: Yes - Vaccine Status Have you recieved a Covid-19 vaccination: No - Review of Systems Constitutional: No Fever Respiratory: No Dyspnea Cardiac: No Chest Pain Abdominal/Gastrointestinal: Nausea, Vomiting, Diarrhea, No Abdominal Pain Skin: No Rash - Past Medical History Pertinent Past Medical History: Yes Neurological History: No Pertinent History ENT History: No Pertinent History Cardiac History: No Pertinent History Respiratory History: Asthma Endocrine Medical History: Hyperthyroidism Musculoskeletal History: No Pertinent History GI Medical History: GERD History: No Pertinent History Psycho-Social History: No Pertinent History Female Reproductive Disorders: No Pertinent History Other Medical History: STATES HAD COVID LAST YEAR. IS NOT VACCINATED. PMHX ALSO INCLUDES GERD - Past Surgical History Past Surgical History: Yes Neuro Surgical History: No Pertinent History Cardiac: No Pertinent History Respiratory: No Pertinent History Gastrointestinal: No Pertinent History Genitourinary: No Pertinent History Musculoskeletal: Other Female Surgical History: No Pertinent History Other Surgical History: right hand carpal tunnel - Social History Smoking Status: Never smoker Exposure to second hand smoke: No Drug Use: none Patient Lives Alone: Yes Significant Family History: no pertinent family hx - Female History Hx Last Menstrual Period: 07/19/23 Hx Now: No - Nursing Vital Signs Nursing Vital Signs: Initial Vital Signs Temperature 98.1 F 07/23/23 23:30 Pulse Rate 97 H 07/23/23 23:30 Respiratory Rate 20 07/23/23 23:30 Blood Pressure 117/76 07/23/23 23:30 O2 Sat by Pulse Oximetry 98 07/23/23 23:30 Pain Scale Pain Intensity 0 - Physical Exam General Appearance: alert Eye Exam: PERRL/EOMI Ears, Nose, Throat Exam: TMs normal, pharynx normal, moist mucous membranes Neck Exam: normal inspection Respiratory Exam: lungs clear Cardiovascular Exam: normal heart sounds Gastrointestinal/Abdomen Exam: soft, normal bowel sounds Back Exam: normal inspection Extremity Exam: No swelling Neurologic Exam: alert, cooperative Skin Exam: warm, dry SpO2 Interpretation: normal SpO2: 98 O2 Delivery: Room Air - Course Nursing assessment & vital signs reviewed: Yes Ordered Tests: Active Orders 24 hr Category Date Time Status CULTURE,URINE Stat Lab 07/23/23 23:51 Received UA W/RFX UR CULTURE Stat Lab 07/23/23 23:51 Completed Medication Summary Discontinued Medications Generic Name Dose Route Start Last Admin Trade Name Freq PRN Reason Stop Dose Admin Ondansetron HCl 4 mg 07/23/23 23:47 07/23/23 23:54 Zofran 4 Mg/Udtablet Orally Disintegrating PO 07/23/23 23:48 4 mg STAT ONE Administration Ondansetron HCl Confirm 07/23/23 23:53 Zofran 4 Mg/Udtablet Orally Disintegrating Administered 07/23/23 23:54 Dose 4 mg .ROUTE .STK-MED ONE Lab/Rad Data: Laboratory Result Diagrams 07/23/23 00:02 07/23/23 00:02 Laboratory Results 07/23/23 07/23/23 07/23/23 Range/Units 23:51 00:02 00:02 WBC (4.0-10.5) x10^3/uL RBC (4.1-5.4) x10^6/uL Hgb (12.0-16.0) g/dL Hct (35-47) % MCV (78-100) fL MCH (26-32) pg MCHC (32-36) g/dL RDW (11.5-14.0) % Plt Count (150-450) x10^3/uL MPV (7.5-11.0) fL Gran % (36.0-66.0) % Immature Gran % (Auto) (0.00-0.4) % Nucleat RBC Rel Count (0.00-0.1) % Eos # (Auto) (0-0.5) x10^3/uL Immature Gran # (Auto) (0.00-0.03) x10^3u/L Absolute Lymphs (auto) (1.0-4.6) x10^3/uL Absolute Monos (auto) (0.0-1.3) x10^3/uL Absolute Nucleated RBC (0.00-0.01) x10^3u/L Lymphocytes % (24.0-44.0) % Monocytes % (0.0-12.0) % Eosinophils % (0.00-5.0) % Basophils % (0.0-0.4) % Absolute Granulocytes (1.4-6.9) x10^3/uL Basophils # (0-0.4) x10^3/uL Sodium 137 (137-145) mmol/L Potassium 3.9 (3.5-5.1) mmol/L Chloride 103 (98-107) mmol/L Carbon Dioxide 24 (22-30) mmol/L Anion Gap 13.2 (5-15) MEQ/L BUN 13 (7-17) mg/dL Creatinine 0.75 (0.52-1.04) mg/dL Estimated GFR 112.5 ML/MIN Glucose 109 H (74-106) mg/dL Calcium 9.5 (8.4-10.2) mg/dL Total Bilirubin 1.20 (0.2-1.3) mg/dL AST 26 (14-36) U/L ALT 18 (0-35) U/L Alkaline Phosphatase 68 (38-126) U/L Serum Total Protein 7.6 (6.3-8.2) g/dL Albumin 4.8 (3.5-5.0) g/dL Amylase 74 (30-110) U/L Lipase 89 (23-300) U/L Serum HCG, Qual NEGATIVE (NEGATIVE) Urine Color Dark Yellow A (Yellow) Urine Appearance Clear (Clear) Urine pH 7.0 (4.6-8.0) Ur Specific Becket >=1.030 A (1.005-1.030) Urine Protein Trace A (Negative) Urine Glucose (UA) Negative (Negative) mg/dL Urine Ketones 80 A (Negative) Urine Blood Small A (Negative) Urine Nitrite Negative (Negative) Urine Bilirubin Negative (Negative) Urine Urobilinogen 1.0 A (0.2) mg/dL Ur Leukocyte Esterase Negative (Negative) U Hyaline Cast (Auto) NONE SEEN (0-2) /LPF Urine Microscopic RBC 11-20 A (0-5) /HPF Urine Microscopic WBC 0-2 (0-5) /HPF Ur Epithelial Cells None Seen (None Seen) /HPF Urine Bacteria None Seen (None Seen) /HPF Urine Culture Reflexed YES (NO) 07/23/23 Range/Units 00:02 WBC 11.1 H (4.0-10.5) x10^3/uL RBC 4.78 (4.1-5.4) x10^6/uL Hgb 14.7 (12.0-16.0) g/dL Hct 43.8 (35-47) % MCV 91.6 (78-100) fL MCH 30.8 (26-32) pg MCHC 33.6 (32-36) g/dL RDW 12.0 (11.5-14.0) % Plt Count 243 (150-450) x10^3/uL MPV 10.1 (7.5-11.0) fL Gran % 85.5 H (36.0-66.0) % Immature Gran % (Auto) 0.3 (0.00-0.4) % Nucleat RBC Rel Count 0.0 (0.00-0.1) % Eos # (Auto) 0.07 (0-0.5) x10^3/uL Immature Gran # (Auto) 0.03 (0.00-0.03) x10^3u/L Absolute Lymphs (auto) 0.92 L (1.0-4.6) x10^3/uL Absolute Monos (auto) 0.55 (0.0-1.3) x10^3/uL Absolute Nucleated RBC 0.00 (0.00-0.01) x10^3u/L Lymphocytes % 8.3 L (24.0-44.0) % Monocytes % 4.9 (0.0-12.0) % Eosinophils % 0.6 (0.00-5.0) % Basophils % 0.4 (0.0-0.4) % Absolute Granulocytes 9.53 H (1.4-6.9) x10^3/uL Basophils # 0.04 (0-0.4) x10^3/uL Sodium (137-145) mmol/L Potassium (3.5-5.1) mmol/L Chloride (98-107) mmol/L Carbon Dioxide (22-30) mmol/L Anion Gap (5-15) MEQ/L BUN (7-17) mg/dL Creatinine (0.52-1.04) mg/dL Estimated GFR ML/MIN Glucose (74-106) mg/dL Calcium (8.4-10.2) mg/dL Total Bilirubin (0.2-1.3) mg/dL AST (14-36) U/L ALT (0-35) U/L Alkaline Phosphatase (38-126) U/L Serum Total Protein (6.3-8.2) g/dL Albumin (3.5-5.0) g/dL Amylase (30-110) U/L Lipase (23-300) U/L Serum HCG, Qual (NEGATIVE) Urine Color (Yellow) Urine Appearance (Clear) Urine pH (4.6-8.0) Ur Specific Becket (1.005-1.030) Urine Protein (Negative) Urine Glucose (UA) (Negative) mg/dL Urine Ketones (Negative) Urine Blood (Negative) Urine Nitrite (Negative) Urine Bilirubin (Negative) Urine Urobilinogen (0.2) mg/dL Ur Leukocyte Esterase (Negative) U Hyaline Cast (Auto) (0-2) /LPF Urine Microscopic RBC (0-5) /HPF Urine Microscopic WBC (0-5) /HPF Ur Epithelial Cells (None Seen) /HPF Urine Bacteria (None Seen) /HPF Urine Culture Reflexed (NO) - Progress Progress: improved Counseled pt/family regarding: lab results, diagnosis, need for follow-up Medical Desision Making - Diagnostic Testing Diagnostic test were ordered, analyzed, and reviewed by me: Yes - Departure Departure Disposition: Home Clinical Impression: Vomiting, Diarrhea Condition: Stable Critical Care Time: No Referrals: DAMIAN DE LUNA NP [Primary Care Provider] - Follow up/PCP as directed Instructions: Nausea and Vomiting, Adult (DC), Diarrhea and Traveler's Diarrhea, Adult (DC) Additional Instructions: Follow up with private doctor tomorrow. Forms: Work/School Release Form Prescriptions: Ondansetron ODT 4 MG [Zofran Odt 4 mg] 4 mg PO Q6H PRN PRN #10 tablet PRN Reason: Nausea
[2023-07-23] MEDS ORDERED: ZOFRAN ODT 4 MG ONE (23:53)
[2023-07-24 00:22] LABS: HCG SERUM TEST NEGATIVE (NEGATIVE)
[2023-07-24 00:27] LABS: Absolute Neutrophil Ct (ANC) 9.53 x10^3/uL (1.4-6.9); BASOPHIL % 0.4 % (0.0-0.4); Basophil (Absolute #) 0.04 x10^3/uL (0-0.4); Eosinophil % 0.6 % (0.00-5.0); Eosinophil (Absolute #) 0.07 x10^3/uL (0-0.5); Hematocrit 43.8 % (35-47); Hemoglobin 14.7 g/dL (12.0-16.0); IMMATURE GRAN # 0.03 x10^3u/L (0.00-0.03); IMMATURE GRAN % 0.3 % (0.00-0.4); Lymphocyte (Absolute #) 0.92 x10^3/uL (1.0-4.6); Lymphocytes % 8.3 % (24.0-44.0); Mean Cell Volume 91.6 fL (78-100); Mean Corpuscular Hemoglobin 30.8 pg (26-32); Mean Corpuscular Hgb Concent. 33.6 g/dL (32-36); Mean Platelet Volume 10.1 fL (7.5-11.0); Monocyte (Absolute #) 0.55 x10^3/uL (0.0-1.3); Monocytes % 4.9 % (0.0-12.0); Neutrophil % 85.5 % (36.0-66.0); Platelet Count 243 x10^3/uL (150-450); Red Blood Count 4.78 x10^6/uL (4.1-5.4); White Blood Count 11.1 x10^3/uL (4.0-10.5)
[2023-07-24 00:28] LABS: Appearance Clear (Clear); Bacteria None Seen /HPF (None Seen); Bilirubin Negative (Negative); Blood Small (Negative); Epithelial Cells None Seen /HPF (None Seen); Glucose, Urine Negative (Negative); Hyaline Casts NONE SEEN /LPF (0-2); Ketones 80 (Negative); Leukocyte Esterase Negative (Negative); Nitrite Negative (Negative); Protein,Urine Dip Trace (Negative); Specific Gravity >=1.030 (1.005-1.030); WBC 0-2 /HPF (0-5)
[2023-07-24 00:31] LABS: ADD URINE CULTURE? YES (NO)
[2023-07-24 00:41] LABS: ALBUMIN 4.8 g/dL (3.5-5.0); ANION GAP 13.2 MEQ/L (5-15); BILIRUBIN,TOTAL 1.2 mg/dL (0.2-1.3); Calcium 9.5 mg/dL (8.4-10.2); Creatinine 1 0.75 mg/dL (0.52-1.04); EST GLOMERULAR FILTRATION RATE 112.5 ML/MIN; Potassium 3.9 mmol/L (3.5-5.1); Total Protein 7.6 g/dL (6.3-8.2)
[2023-07-24 01:32] VITALS: BP 111/64; PULSE 66; RESP 20; O2SAT 97
== END 2023-07-24 01:38 | disposition home or self-care (01) ==
LOC: ED 22:57
DX: R11.2 Nausea with vomiting, unspecified (principal); R19.7 Diarrhea, unspecified; Z79.899 Other long term (current) drug therapy; Z28.310 Unvaccinated for COVID-19; Z86.16 Personal history of COVID-19
CPT/HCPCS: 36415; 80053; 81001; 82150; 83690; 84703; 85025; 87086; 99283; Q0162

== ENCOUNTER 2024-03-27 18:42 | Emergency (ER) | payer BC ==
[2024-03-27 19:03] VITALS: TEMP 98.5; O2SAT 99
[2024-03-27] MEDS ORDERED: BENADRYL 50 MG/ML ONE (19:35)
[2024-03-27] MEDS ORDERED: TORAdol 30 mg Injection ONE (19:35)
[2024-03-27] MEDS: TORAdol 30 mg Injection IM ONE (19:37)
[2024-03-27] MEDS: BENADRYL 50 MG/ML IM ONE (19:37)
[2024-03-27 20:01] LABS: HCG URINE TEST NEGATIVE (NEGATIVE)
[2024-03-27 20:05] LABS: ADD URINE CULTURE? NO (NO); Appearance Turbid (Clear); Bacteria None Seen /HPF (None Seen); Bilirubin Negative (Negative); Blood Negative (Negative); Epithelial Cells None Seen /HPF (None Seen); Glucose, Urine Negative (Negative); Hyaline Casts NONE SEEN /LPF (0-2); Ketones Negative (Negative); Leukocyte Esterase Negative (Negative); Nitrite Negative (Negative); Protein,Urine Dip Negative (Negative); RBC 0-2 /HPF (0-5); Specific Gravity 1.015 (1.005-1.030); Urobilinogen 0.2 mg/dL (0.2); WBC 0-2 /HPF (0-5)
--- NOTE | 2024-03-27 20:21 | ERPHSYRPT ---
- History of Present Illness Time Seen by Provider: 03/27/24 19:25 Source: patient, family Exam Limitations: no limitations Patient Subjective Stated Complaint: C/O headache that started around 1830 yesterday. Pain is becoming worse and is now constant. Triage Nursing Assessment: Patient ambulated back to ER without difficulties. She is alert and oriented. Skin tone normal. No SOB. Physician History: This is a 28-year-old obese white female patient who presents to the emergency department by private vehicle with a family member and is a patient Dr. Graf. She has a complaint of generalized headache that began approximate 24 hours prior to arrival. The pain became worse today and patient felt her blood pressure might be elevated but it was not elevated. Patient denies any exposure to individuals with flulike symptoms. She states this is the worst headache she is ever had. She denies trauma to her head. She has no light sensitivity. She does have nausea but no vomiting symptoms. She does not have a sore throat. She has no visual changes. She did have a low-grade fever of 100.7 F at home. Timing/Duration: yesterday Quality: throbbing Head Pain Location: global Severity of Pain-Max: moderate Severity of Pain-Current: moderate Recent Head Trauma: no recent headache/trauma Modifying Factors: Worsens With: exposure to light, noise Associated Symptoms: nausea/vomiting (Nausea but no vomiting), No neck pain, No sensitive to light, No stiff neck, No vision changes, No visual disturbance Previous symptoms: no prior history Allergies/Adverse Reactions: No Known Drug Allergies Allergy (Verified 03/27/24 18:51) Home Medications: Cetirizine HCl [Zyrtec] 10 mg PO DAILY 12/13/18 [History] Fluticasone Propionate [Flonase NASAL] 1 gm NS UD 12/13/18 [History] Omeprazole 40 mg PO DAILY 12/13/18 [History] hydrOXYzine HCL [Hydroxyzine HCl] 1 - 2 tab PO HS PRN PRN 07/23/23 [History] Albuterol Sulfate [Proair Respiclick] 2 puffs IH UD 09/03/23 [History] Ascorbic Acid 500 mg [Vitamin C 500 MG] 1 mg PO DAILY 09/03/23 [History] Azelastine Nasal [Astelin Nasal] 2 sprays NS UD 09/03/23 [History] Multivitamin [Multiple Vitamins] 1 tab PO UD 09/03/23 [History] Phentermine HCl [Adipex-P] 37.5 mg PO DAILY 03/27/24 [History] Topiramate 25 mg [Topamax 25 MG] 25 mg PO BID 03/27/24 [History] Hx Tetanus, Diphtheria Vaccination/Date Given: Yes Hx Influenza Vaccination/Date Given: Yes Hx Pneumococcal Vaccination/Date Given: No Immunizations Up to Date: Yes Travel Risk - International Travel Have you traveled outside of the country in past 3 weeks: No - Emerging Infectious Disease Are you exhibiting symptoms associated with any current EIDs: Yes Symptoms: Fever, Headaches/Body Aches/ - Review of Systems Constitutional: Fever (At home) Eyes: No Symptoms Ears, Nose, & Throat: No Symptoms Respiratory: No Symptoms Cardiac: No Symptoms Abdominal/Gastrointestinal: No Symptoms Genitourinary Symptoms: No Symptoms Musculoskeletal: No Symptoms Skin: No Symptoms Neurological: Headache Psychological: No Symptoms Endocrine: No Symptoms Hematologic/Lymphatic: No Symptoms Immunological/Allergic: No Symptoms All Other Systems: Reviewed and Negative - Past Medical History Pertinent Past Medical History: Yes Neurological History: No Pertinent History ENT History: No Pertinent History Cardiac History: No Pertinent History Respiratory History: Asthma Endocrine Medical History: Hyperthyroidism Musculoskeletal History: No Pertinent History GI Medical History: GERD History: No Pertinent History Psycho-Social History: No Pertinent History Female Reproductive Disorders: No Pertinent History Other Medical History: COVID - Past Surgical History Past Surgical History: Yes Neuro Surgical History: No Pertinent History Cardiac: No Pertinent History Respiratory: No Pertinent History Gastrointestinal: No Pertinent History Genitourinary: No Pertinent History Musculoskeletal: Other Female Surgical History: No Pertinent History Other Surgical History: right and left hand carpal tunnel Significant Family History: no pertinent family hx - Female History Hx Now: No - Social History Smoking Status: Never smoker Exposure to second hand smoke: No Drug Use: none Patient Lives Alone: Yes - Social Determinants of Health Will the patient participate in the screening: Yes Do you worry about a steady place to live?: No Do you have any problems with any of the following?: No known problems In the past 12 months,have you had to go without utilities?: No Transportation Issues: No Has anyone in your support network made you feel unsafe?: No Have you or anyone in your house had to go without enough: No - Nursing Vital Signs Nursing Vital Signs: Initial Vital Signs Temperature 98.5 F 03/27/24 18:55 Pulse Rate 85 03/27/24 18:55 Respiratory Rate 18 03/27/24 18:55 Blood Pressure 131/88 03/27/24 18:55 O2 Sat by Pulse Oximetry 99 03/27/24 18:55 Pain Scale Pain Intensity 10 - Physical Exam General Appearance: no apparent distress, alert, anxiety, obese Eye Exam: PERRL/EOMI Ears, Nose, Throat Exam: normal ENT inspection, moist mucous membranes Neck Exam: normal inspection, non-tender, supple, full range of motion Respiratory Exam: normal breath sounds, lungs clear, airway intact, No chest tenderness, No respiratory distress Cardiovascular Exam: regular rate/rhythm, normal heart sounds, normal peripheral pulses Gastrointestinal/Abdominal Exam: soft, normal bowel sounds, No tenderness Back Exam: normal inspection, normal range of motion, No CVA tenderness, No vertebral tenderness Extremity Exam: normal inspection, normal range of motion, pelvis stable Mental Status Exam: alert, oriented x 3, cooperative balance clerk Exam: normal hearing, normal speech, PERRL Coordination/Gait Exam: normal finger to nose, normal gait, normal cerebellar function Motor/Sensory Exam: no motor deficit, no sensory deficit, no pronator drift Skin Exam: normal color, warm, dry Lymphatic Exam: No adenopathy SpO2 Interpretation: normal SpO2: 99 O2 Delivery: Room Air - Course Nursing assessment & vital signs reviewed: Yes Ordered Tests: Active Orders 24 hr Category Date Time Status HEAD WITHOUT CONTRAST [CT] Stat Exams 03/27/24 19:44 Taken HCG QUALITATIVE, URINE Stat Lab 03/27/24 19:55 Completed UA W/RFX UR CULTURE Stat Lab 03/27/24 19:55 Completed Medication Summary Discontinued Medications Generic Name Dose Route Start Last Admin Trade Name Baljinderq PRN Reason Stop Dose Admin Diphenhydramine HCl 50 mg 03/27/24 19:32 03/27/24 19:37 Diphenhydramine Hcl 50 Mg/Ml Vial IM 03/27/24 19:33 50 mg STAT ONE Administration Diphenhydramine HCl Confirm 03/27/24 19:35 Diphenhydramine Hcl 50 Mg/Ml Vial Administered 03/27/24 19:36 Dose 50 mg .ROUTE .STK-MED ONE Ketorolac Tromethamine 60 mg 03/27/24 19:32 03/27/24 19:37 Ketorolac Tromethamine 30 Mg/Ml Inj IM 03/27/24 19:33 60 mg STAT ONE Administration Ketorolac Tromethamine Confirm 03/27/24 19:35 Ketorolac Tromethamine 30 Mg/Ml Inj Administered 03/27/24 19:36 Dose 60 mg .ROUTE .STK-MED ONE Lab/Rad Data: Laboratory Results 03/27/24 03/27/24 03/27/24 Range/Units 19:55 19:55 19:35 Urine Color Yellow (Yellow) Urine Appearance Turbid A (Clear) Urine pH 8.0 (4.6-8.0) Ur Specific [place] 1.015 (1.005-1.030) Urine Protein Negative (Negative) Urine Glucose (UA) Negative (Negative) mg/dL Urine Ketones Negative (Negative) Urine Blood Negative (Negative) Urine Nitrite Negative (Negative) Urine Bilirubin Negative (Negative) Urine Urobilinogen 0.2 (0.2) mg/dL Ur Leukocyte Esterase Negative (Negative) U Hyaline Cast (Auto) NONE SEEN (0-2) /LPF Urine Microscopic RBC 0-2 (0-5) /HPF Urine Microscopic WBC 0-2 (0-5) /HPF Ur Epithelial Cells None Seen (None Seen) /HPF Urine Bacteria None Seen (None Seen) /HPF Urine Culture Reflexed NO (NO) Urine HCG, Qual NEGATIVE (NEGATIVE) Influenza Type A Ag NEGATIVE (NEGATIVE) Influenza Type B Ag NEGATIVE (NEGATIVE) RSV (PCR) NEGATIVE (NEGATIVE) SARS-CoV-2 (PCR) NEGATIVE (NEGATIVE) Group A Strep Antibody (NEGATIVE) 03/27/24 Range/Units 19:35 Urine Color (Yellow) Urine Appearance (Clear) Urine pH (4.6-8.0) Ur Specific [place] (1.005-1.030) Urine Protein (Negative) Urine Glucose (UA) (Negative) mg/dL Urine Ketones (Negative) Urine Blood (Negative) Urine Nitrite (Negative) Urine Bilirubin (Negative) Urine Urobilinogen (0.2) mg/dL Ur Leukocyte Esterase (Negative) U Hyaline Cast (Auto) (0-2) /LPF Urine Microscopic RBC (0-5) /HPF Urine Microscopic WBC (0-5) /HPF Ur Epithelial Cells (None Seen) /HPF Urine Bacteria (None Seen) /HPF Urine Culture Reflexed (NO) Urine HCG, Qual (NEGATIVE) Influenza Type A Ag (NEGATIVE) Influenza Type B Ag (NEGATIVE) RSV (PCR) (NEGATIVE) SARS-CoV-2 (PCR) (NEGATIVE) Group A Strep Antibody NOT DETECTED (NEGATIVE) - Progress Progress: improved, re-examined Air Movement: good Progress Note: 03/27/24 20:26 My medical decision making of the assignment of low to moderate complexity of this patient's medical issue today is based on review of the patient's past medical history, review the patient's medication list, review the patient drug allergy list, history present illness and physical findings on examination. The workup in this patient includes CT scan of the head as well as viral studies and urinalysis and group A strep. Differential diagnosis includes but is not limited to viral illness, migraine headache, urinary tract infection, dehydration 03/27/24 21:14 I interpreted the patient's laboratory data results. Based on the laboratory data results, the patient does not have an acute or emergent medical issue. CT scan of the head without contrast was interpreted by the radiologist and I reviewed the impression. The impression states no acute intracranial abnormality. Normal CT scan of the head without contrast Blood Culture(s) Obtained: No Antibiotics given: No Counseled pt/family regarding: lab results, diagnosis, need for follow-up Medical Desision Making - Independent Historian Additional History obtained from: Family - Diagnostic Testing Diagnostic test were ordered, analyzed, and reviewed by me: Yes Radiological Interpretation: Reviewed by me - Risk of complications Low Risk: Low risk of morbidity from additional dx testing or treatment - Departure Departure Disposition: Home Clinical Impression: Headache Condition: Stable Critical Care Time: No Referrals: TAMMIE GRAF DO [Primary Care Provider] - Follow up/PCP as directed Additional Instructions: Use Tylenol and ibuprofen for headache pain control. Call your primary care provider tomorrow, 03/28/2024, to make arrangements for follow-up appointment for further evaluation and management and to be seen in the next 3 to 5 days.
[2024-03-27 20:39] LABS: INFLUENZA A NEGATIVE (NEGATIVE); INFLUENZA B NEGATIVE (NEGATIVE); RESPIRATORY SYNCTIAL VIRUS NEGATIVE (NEGATIVE); SARS-CoV-2 Xpert Express NEGATIVE (NEGATIVE)
[2024-03-27] MEDS: MORPHINE SULFATE 2 MG INJ IM ONE (21:30)
[2024-03-27] MEDS: ZOFRAN ODT 4 MG PO ONE (21:30)
[2024-03-27] MEDS ORDERED: ZOFRAN ODT 4 MG ONE (21:37)
[2024-03-27] MEDS ORDERED: MORPHINE SULFATE 2 MG INJ ONE (21:37)
[2024-03-27 21:53] VITALS: BP 131/75; PULSE 75; RESP 20
--- NOTE | 2024-03-28 08:40 | XRAY ---
Indication: Headache. Multiple contiguous axial images obtained through the head without contrast. Comparison: None Normal appearing brain parenchyma, ventricles, and bony calvarium. Visualized paranasal sinuses and mastoid air cells are clear. Impression: Normal CT head without contrast exam.
== END 2024-03-27 21:57 | disposition home or self-care (01) ==
LOC: ED 18:42
DX: R51.9 Headache, unspecified (principal); R50.9 Fever, unspecified; R11.0 Nausea; Z79.899 Other long term (current) drug therapy
CPT/HCPCS: 0241U; 70450; 81001; 81025; 87651; 96372; 99284; J1200; J1885; J2270; Q0162

== ENCOUNTER 2024-07-09 10:47 | Emergency (ER) | payer BC ==
[2024-07-09 11:13] VITALS: TEMP 97.2
[2024-07-09] MEDS ORDERED: ZOFRAN ODT 4 MG ONE (11:25)
[2024-07-09] MEDS ORDERED: MAALOX ES 30 ML UNIT DOSE ONE (11:25)
[2024-07-09] MEDS: MAALOX ES 30 ML UNIT DOSE PO ONE (11:26)
[2024-07-09] MEDS: ZOFRAN ODT 4 MG PO ONE (11:26)
--- NOTE | 2024-07-09 11:26 | ERPHSYRPT ---
- History of Present Illness Time Seen by Provider: 07/09/24 11:16 Historian: patient Exam Limitations: no limitations Patient Subjective Stated Complaint: pt here n/v/d since wednesday, she states she is no longer vomiting, but has had 4 loose stools today, she was able to go to [employer] yesterday and eat, today co epigastric pain Triage Nursing Assessment: pt alert, walked in, resp easy, skin w/d/p, abd soft, no edema noted, moves all ext well, no vomiting in er Physician History: Patient has a history of reflux. About 3 to 4 days ago she started having some vomiting and diarrhea. I been seeing a lot of people with this. She does not really have any abdominal pain or fever. She was taking Imodium and stop that and her diarrhea returned. She has had about 3 loose bowel movements today. She is not throwing up today but says she is little bit nauseated. Eating makes his symptoms a little bit worse especially the diarrhea. She is able to keep fluids down. She still urinating and does not think that she is dehydrated. Her vital signs are stable. She has not had any abdominal pain. She is still having bowel movements obviously. Allergies/Adverse Reactions: No Known Drug Allergies Allergy (Verified 07/09/24 11:03) Home Medications: Fluticasone Propionate [Flonase NASAL] 1 gm NS 12/13/18 [History] Omeprazole 40 mg PO DAILY 12/13/18 [History] hydrOXYzine HCL [Hydroxyzine HCl] 1 - 2 tab PO HS PRN PRN 07/23/23 [History] Albuterol Sulfate [Proair Respiclick] 2 puffs [facility] 09/03/23 [History] Ascorbic Acid 500 mg [Vitamin C 500 MG] 1 mg PO DAILY 09/03/23 [History] Azelastine Nasal [Astelin Nasal] 2 sprays NS 09/03/23 [History] Multivitamin [Multiple Vitamins] 1 tab PO UD 09/03/23 [History] Topiramate 25 mg [Topamax 25 MG] 25 mg PO BID 03/27/24 [History] Hx Tetanus, Diphtheria Vaccination/Date Given: No Hx Influenza Vaccination/Date Given: Yes Hx Pneumococcal Vaccination/Date Given: No Immunizations Up to Date: Yes Travel Risk - International Travel Have you traveled outside of the country in past 3 weeks: No - Emerging Infectious Disease Are you exhibiting symptoms associated with any current EIDs: Yes Symptoms: Diarrhea - Review of Systems Constitutional: No Symptoms Eyes: No Symptoms Abdominal/Gastrointestinal: Nausea, Vomiting, Diarrhea, No Constipation Genitourinary Symptoms: No Symptoms Musculoskeletal: No Symptoms Skin: No Symptoms - Past Medical History Pertinent Past Medical History: Yes Neurological History: No Pertinent History ENT History: No Pertinent History Cardiac History: No Pertinent History Respiratory History: Asthma Endocrine Medical History: Hyperthyroidism Musculoskeletal History: No Pertinent History GI Medical History: GERD History: No Pertinent History Psycho-Social History: No Pertinent History Female Reproductive Disorders: No Pertinent History Other Medical History: COVID - Past Surgical History Past Surgical History: Yes Neuro Surgical History: No Pertinent History Cardiac: No Pertinent History Respiratory: No Pertinent History Gastrointestinal: No Pertinent History Genitourinary: No Pertinent History Musculoskeletal: Other Female Surgical History: No Pertinent History Other Surgical History: carpal tunnel Significant Family History: no pertinent family hx - Female History Hx Last Menstrual Period: nov Hx Now: No - Social History Smoking Status: Never smoker Exposure to second hand smoke: No Drug Use: none Patient Lives Alone: Yes - Social Determinants of Health Will the patient participate in the screening: Declined to provide - Nursing Vital Signs Nursing Vital Signs: Initial Vital Signs Blood Pressure 123/72 07/09/24 11:02 O2 Sat by Pulse Oximetry 98 07/09/24 11:02 Pain Scale Pain Intensity 8 - Physical Exam General Appearance: no apparent distress Eye Exam: PERRL/EOMI Respiratory Exam: normal breath sounds Cardiovascular Exam: regular rate/rhythm Gastrointestinal/Abdomen Exam: soft, normal bowel sounds, No tenderness, No distention, No mass Neurologic Exam: alert, oriented x 3 Skin Exam: normal color, warm SpO2: 99 - Course Nursing assessment & vital signs reviewed: Yes Ordered Tests: Medication Summary Discontinued Medications Generic Name Dose Route Start Last Admin Trade Name Freq PRN Reason Stop Dose Admin Al Hydrox/Mg Hydrox/Simethicone 30 ml 07/09/24 11:22 07/09/24 11:26 Mag Hydrox/Al Hydrox/Simeth 30 Ml Udcup PO 07/09/24 11:23 30 ml STAT ONE Administration Al Hydrox/Mg Hydrox/Simethicone Confirm 07/09/24 11:25 Mag Hydrox/Al Hydrox/Simeth 30 Ml Udcup Administered 07/09/24 11:26 Dose 30 ml .ROUTE .STK-MED ONE Ondansetron HCl 8 mg 07/09/24 11:22 07/09/24 11:26 Zofran 4 Mg/Udtablet Orally Disintegrating PO 07/09/24 11:23 8 mg STAT ONE Administration Ondansetron HCl Confirm 07/09/24 11:25 Zofran 4 Mg/Udtablet Orally Disintegrating Administered 07/09/24 11:26 Dose 8 mg .ROUTE .STK-MED ONE - Progress Progress Note: Patient was stable throughout stay. I gave her a trial of Zofran and ODT. She has some at home and does not require a prescription for this. I am also try some Maalox. I think that she just has a gastrointestinal virus. Also on the differential isReflux, esophagitis, gastroenteritis, bowel obstruction is a lot less likely. 07/09/24 11:25 Medical Desision Making - Diagnostic Testing Diagnostic test were ordered, analyzed, and reviewed by me: No - Risk of complications Minimal Risk: Minimal risk of morbidity - Departure Departure Disposition: Home Clinical Impression: Dyspepsia Diarrhea Qualifiers: Diarrhea type: presumed infectious Qualified Code(s): R19.7 - Diarrhea, unspecified Condition: Stable Critical Care Time: No Referrals: TAMMIE GRAF DO [Primary Care Provider] - Follow up/PCP as directed Instructions: Dyspepsia (DC)
[2024-07-09 12:08] VITALS: BP 108/75; PULSE 70; RESP 18; O2SAT 98
== END 2024-07-09 12:09 | disposition home or self-care (01) ==
LOC: ED 10:47
DX: R11.2 Nausea with vomiting, unspecified (principal); R19.7 Diarrhea, unspecified; R10.13 Epigastric pain
CPT/HCPCS: 99281; Q0162; A9270-GY

== ENCOUNTER 2024-08-06 05:34 | Emergency (ER) | payer BC, SELFPAY ==
[2024-08-06 06:12] VITALS: BP 125/75; PULSE 74; RESP 18; TEMP 98.3; O2SAT 99
--- NOTE | 2024-08-06 06:26 | ERPHSYRPT ---
- History of Present Illness Time Seen by Provider: 08/06/24 06:20 Source: patient Exam Limitations: no limitations Patient Subjective Stated Complaint: PT STATES, "I HAVE HAD A HEADACHE AND BOTH EARS ARE KILLING ME, MY THROAT HURTS AND I HAVE BODY ACHES. THIS MORNING I WOKE UP AND I HAVE BLISTERS ON THE ROOF OF MY MOUTH AND DOWN MY THROAT" Triage Nursing Assessment: PT. A&OX3, SKIN P/W/D, RESP EVEN UNLABORED. AMBULATED TO ROOM WITHOUT DIFF. NONPRODUCTIVE COUGH. Physician History: The patient presents with a sore throat, mouth sores, and ear pain. Initially, they experienced a sharp, painful chest cough starting Wednesday night into morning, which progressed to a severely sore throat and sores in their mouth. Significant ear pain and headaches have developed, with descriptions of the ears and head as 'killing me.' No fevers have been noticed, although they mention not having an accurate thermometer at home. For symptom relief, they have taken a whole box of Advil Cold and Flu. Timing/Duration: day(s) (3) Cough Quality/Degree: moderate, dry cough Possible Cause: no prior episodes Modifying Factors: Improves With: nothing Associated Symptoms: fever, chills, cough, earache, facial pain, headache, sore throat, No chest pain/soreness, No shortness of breath Allergies/Adverse Reactions: No Known Drug Allergies Allergy (Verified 07/09/24 11:03) Home Medications: Fluticasone Propionate [Flonase NASAL] 1 gm NS UD 12/13/18 [History] Omeprazole 40 mg PO DAILY 12/13/18 [History] hydrOXYzine HCL [Hydroxyzine HCl] 1 - 2 tab PO HS PRN PRN 07/23/23 [History] Albuterol Sulfate [Proair Respiclick] 2 puffs [facility] 09/03/23 [History] Ascorbic Acid 500 mg [Vitamin C 500 MG] 1 mg PO DAILY 09/03/23 [History] Azelastine Nasal [Astelin Nasal] 2 sprays NS UD 09/03/23 [History] Multivitamin [Multiple Vitamins] 1 tab PO UD 09/03/23 [History] Topiramate 25 mg [Topamax 25 MG] 25 mg PO BID 03/27/24 [History] Hx Tetanus, Diphtheria Vaccination/Date Given: Yes Hx Influenza Vaccination/Date Given: No Hx Pneumococcal Vaccination/Date Given: No Immunizations Up to Date: No Travel Risk - International Travel Have you traveled outside of the country in past 3 weeks: No - Emerging Infectious Disease Are you exhibiting symptoms associated with any current EIDs: Yes Symptoms: Cough: New Onset, Headaches/Body Aches/ - Review of Systems All Other Systems: Reviewed and Negative - Past Medical History Pertinent Past Medical History: Yes Neurological History: No Pertinent History ENT History: No Pertinent History Cardiac History: No Pertinent History Respiratory History: Asthma Endocrine Medical History: Hyperthyroidism Musculoskeletal History: No Pertinent History GI Medical History: GERD History: No Pertinent History Psycho-Social History: No Pertinent History Female Reproductive Disorders: No Pertinent History Other Medical History: COVID - Past Surgical History Past Surgical History: Yes Neuro Surgical History: No Pertinent History Cardiac: No Pertinent History Respiratory: No Pertinent History Gastrointestinal: No Pertinent History Genitourinary: No Pertinent History Musculoskeletal: Other Female Surgical History: No Pertinent History Other Surgical History: carpal tunnel BILATERAL Significant Family History: no pertinent family hx - Female History Hx Last Menstrual Period: 3 WEEKS AGO Hx Now: No - Social History Smoking Status: Never smoker Exposure to second hand smoke: No Drug Use: none Patient Lives Alone: Yes - Social Determinants of Health Will the patient participate in the screening: Declined to provide - Nursing Vital Signs Nursing Vital Signs: Initial Vital Signs Temperature 98.3 F 08/06/24 06:01 Pulse Rate 74 08/06/24 06:01 Respiratory Rate 18 08/06/24 06:01 Blood Pressure 125/75 08/06/24 06:01 O2 Sat by Pulse Oximetry 99 08/06/24 06:01 Pain Scale Pain Intensity 9 - Physical Exam General Appearance: no apparent distress Ears, Nose, Throat Exam: TMs normal (cerumen), pharyngeal erythema (petechiae posterior pharynx), No tonsillar exudate Neck Exam: normal inspection, supple, full range of motion, lymphadenopathy Respiratory Exam: normal breath sounds, lungs clear, airway intact, No respiratory distress Cardiovascular Exam: regular rate/rhythm, normal heart sounds, capillary refill <2 sec Neurologic Exam: alert, oriented x 3, cooperative Skin Exam: normal color, warm, dry, No rash SpO2 Interpretation: normal SpO2: 99 O2 Delivery: Room Air - Course Nursing assessment & vital signs reviewed: Yes - Progress Progress: improved Air Movement: good Progress Note: Streptococcal pharyngitis Presents with sore throat, oral ulcers, otalgia, and cephalgia following an initial acute cough. Symptoms have persisted since Wednesday night. Physical examination indicates streptococcal pharyngitis. Afebrile, though lacks an accurate thermometer at home. Clinical presentation suggests streptococcal pharyngitis. - Perform strep, covid, flu and rsv swab - Empirically tx for strep - Bicillin given in ER today - Prescribe steroid for pharyngeal erythema and odynophagia Blood Culture(s) Obtained: No Antibiotics given: Yes Counseled pt/family regarding: lab results, diagnosis Medical Desision Making - Diagnostic Testing Diagnostic test were ordered, analyzed, and reviewed by me: Yes Radiological Interpretation: Interpreted by me - Risk of complications The pt has a mod risk of morbidity or mortality based on: Need for prescription drug management - Departure Departure Disposition: Home Clinical Impression: Pharyngitis Condition: Good Critical Care Time: No Referrals: TAMMIE GRAF DO [Primary Care Provider] - Follow up/PCP as directed Instructions: Sore Throat, Adult (DC) Prescriptions: predniSONE [Prednisone] 20 mg PO DAILY 4 Days #4 tablet
[2024-08-06] MEDS ORDERED: DELTASONE 20 MG ONE (07:11)
[2024-08-06] MEDS ORDERED: Bicillin L-A 1.2 Mu/2ML SYRINGE IM ONE (07:11)
[2024-08-06 07:12] LABS: Group A Strep NOT DETECTED (NEGATIVE)
[2024-08-06] MEDS: DELTASONE 20 MG PO ONE (07:12)
[2024-08-06] MEDS: Bicillin L-A 1.2 Mu/2ML SYRINGE IM ONE (07:12)
[2024-08-06 07:45] LABS: INFLUENZA B NEGATIVE (NEGATIVE); RESPIRATORY SYNCTIAL VIRUS NEGATIVE (NEGATIVE); SARS-CoV-2 Xpert Express NEGATIVE (NEGATIVE)
[2024-08-06 07:53] LABS: INFLUENZA A POSITIVE (NEGATIVE)
== END 2024-08-06 07:45 | disposition home or self-care (01) ==
LOC: ED 05:34
DX: J02.9 Acute pharyngitis, unspecified (principal); R05.1 Acute cough; H92.09 Otalgia, unspecified ear; R51.9 Headache, unspecified; Z79.899 Other long term (current) drug therapy; Z79.52 Long term (current) use of systemic steroids
CPT/HCPCS: 0241U; 87651; 96372; 99284; 99283; J0561; A9270-GY